=== PATIENT | female | born 1945 | race Caucasian/White ===

== ENCOUNTER 2022-05-10 13:26 | Emergency (ER) | payer MEDICARE, SELFPAY ==
--- NOTE | 2022-05-10 | ECG_ITS ---
Test Reason : n/v Blood Pressure : / mmHG Vent. Rate : 057 BPM Atrial Rate : 057 BPM P-R Int : 186 ms QRS Dur : 132 ms QT Int : 480 ms P-R-T Axes : 072 -23 047 degrees QTc Int : 467 ms Poor data quality, interpretation may be adversely affected Sinus bradycardia Right bundle branch block Abnormal ECG When compared with ECG of 18-JUL-2013 10:14, Right bundle branch block is now Present Referred By: Generic ED Physician Electronically Signed By:ASHLY AMBROSIO MD
--- NOTE | ~2022-05-10 | CT_ITS ---
EXAMINATION: CT ABDOMEN AND PELVIS WITHOUT CONTRAST CLINICAL INFORMATION: Abdominal pain. Nausea. Vomiting. COMPARISON: None TECHNIQUE: Multidetector volumetric imaging was performed from the superior aspect of the liver through the pubic symphysis. Sagittal and coronal reformatted images were obtained on the technologist's workstation. This CT examination was performed using dose optimization techniques as appropriate, variously including the following: *Automated exposure control *Adjustment of mA and/or kV according to patient size (this includes techniques or standardized protocols for targeted exams where dose is matched to indication/reason for exam; i.e. extremities or head) *Use of iterative reconstruction technique DLP: 983 mGy-cm FINDINGS: LUNG BASES: Status post median sternotomy. Linear scarring at lung bases. Heart size normal. Vascular calcification of coronary arteries. Calcifications of mitral valve annulus. No pericardial effusion. Small hiatal hernia. LIVER, GALLBLADDER, AND BILIARY TREE: The liver is normal in size, shape, and attenuation. No focal hepatic lesion or biliary ductal dilatation is present. Status post cholecystectomy. PANCREAS: Unremarkable. SPLEEN: Unremarkable. ADRENAL GLANDS: Unremarkable. KIDNEYS AND URETERS: The kidneys are normal in size, shape, and attenuation. No hydronephrosis, hydroureter, or calculi seen. No perinephric stranding. BLADDER: Unremarkable. GASTROINTESTINAL TRACT: There are numerous diverticula of the descending and sigmoid colon. Scattered diverticula of the right colon There is no diverticulitis. There is no bowel wall thickening /edema. There is no bowel obstruction. There is a moderate volume of stool in the colon. The appendix is normal . The small bowel loops are unremarkable. The stomach is normal. There is small hiatal hernia. ABDOMINAL WALL: No significant hernia is appreciated. LYMPH NODES: Normal. VASCULAR: Extensive vascular calcifications throughout the abdomen and pelvis. There is no aneurysm. PELVIC VISCERA: Uterus is anteverted. No adnexal abnormality. OSSEOUS STRUCTURES: No acute osseous abnormality. There is advanced multilevel degenerative spondylosis throughout the spine. Grade 1/2 anterolisthesis of L4 on L5 due to facet joint disease. No spondylolysis. Old healed fracture of the left posterior 11th rib. CT/CT abdomen pelvis wo con IMPRESSION: No acute abnormality the abdomen and pelvis. Marked diverticulosis of the colon but no evidence of diverticulitis. Status post cholecystectomy. Fleischner guidelines were followed.
--- NOTE | ~2022-05-10 | XR_ITS ---
EXAMINATION: XR CHEST CLINICAL INFORMATION: Shortness of breath COMPARISON: Previous chest x-ray June 2013 TECHNIQUE: Frontal view of the chest was obtained. FINDINGS: The cardiac silhouette does not appear enlarged. There are new median sternotomy wires and mediastinal clips. Hilar and mediastinal contours are otherwise unremarkable. The lungs are clear. There is no pleural effusion or pneumothorax. No acute bone abnormality appreciated. XR/XR chest 1V IMPRESSION: No evidence for acute disease in the chest.
--- NOTE | ~2022-05-10 | CT_ITS ---
EXAMINATION: CT HEAD WITHOUT CONTRAST CLINICAL INFORMATION: Altered mental status COMPARISON: None TECHNIQUE: Contiguous axial imaging was performed from the skull base to vertex without intravenous administration of contrast. This CT examination was performed using dose optimization techniques as appropriate, variously including the following: *Automated exposure control *Adjustment of mA and/or kV according to patient size (this includes techniques or standardized protocols for targeted exams where dose is matched to indication/reason for exam; i.e. extremities or head) *Use of iterative reconstruction technique DLP: 676 mGy-cm FINDINGS: There is no evidence of acute intracranial hemorrhage or territorial infarction. No abnormal mass effect or midline shift is seen. Hopson to white matter differentiation is well preserved. No extra-axial fluid collections are identified. There is generalized global volume loss. There is moderate prominence of the ventricles and the sulci . There is mild hypodensity of the periventricular white matter due to chronic small vessel ischemic disease. There are vascular calcifications of the internal carotid arteries bilaterally. The osseous structures and soft tissues are normal. The mastoid air cells and visualized portions of the paranasal sinuses are well aerated. CT/CT head/brain wo con IMPRESSION: No acute intracranial pathology.
--- NOTE | 2022-05-10 10:16 | ECG_ITS ---
Test Reason : chest pain Blood Pressure : / mmHG Vent. Rate : 070 BPM Atrial Rate : 070 BPM P-R Int : 186 ms QRS Dur : 134 ms QT Int : 456 ms P-R-T Axes : 073 -31 042 degrees QTc Int : 492 ms Normal sinus rhythm Left axis deviation Right bundle branch block Inferior infarct , age undetermined Abnormal ECG When compared with ECG of 10-MAY-2022 13:51, No significant changes seen Referred By: Leanne Steel Electronically Signed By:GARY GAMEZ
[2022-05-10 13:45] VITALS: BP 174/74; PULSE 62; O2SAT 97; BMI 40.8
[2022-05-10 13:47] VITALS: BP 142/78; PULSE 61; RESP 12; TEMP 36.6; O2SAT 100
[2022-05-10 14:24] LABS: MANUAL DIFF FLAG NO
[2022-05-10 14:26] LABS: Basophils Percent Auto 0.4 % (0-2); Eosinophils Percent Auto 0.4 % (0-4); Hematocrit 41.6 % (37.0-47.0); Hemoglobin 13.7 g/dl (12.0-16.0); Imm Gran Abs Auto 0.04 X10*3/uL (0.00-0.03); Imm Gran Pct Auto 0.4 % (0.0-0.4); Lymphocytes Absolute Auto 0.8 X10*3/uL (1.2-4.9); Lymphocytes Percent Auto 7.4 % (20-40); Mean Corpuscular HGB Conc 32.9 g/dl (31.0-35.0); Mean Corpuscular Hemoglobin 29.1 pg (27.0-33.0); Mean Corpuscular Volume 88.5 fL (80.0-98.0); Mean Platelet Volume 10.6 fL (9.4-12.3); Monocytes Absolute Auto 0.3 X10*3/uL (0.1-1.2); Monocytes Percent Auto 2.5 % (2-11); Neutrophils Absolute Auto 9.2 x10*3/uL (2.0-8.3); Neutrophils Percent Auto 88.9 % (45-73); Platelet Count 197 X10*3/uL (160-400); Red Cell Distribution Width 13.6 % (11.0-16.0); White Blood Count 10.4 X10*3/uL (4.8-10.8)
[2022-05-10 14:33] VITALS: BP 167/68; PULSE 61; RESP 14; O2SAT 100
--- NOTE | 2022-05-10 14:36 | ED_ITS ---
HPI - Nausea/Vomiting/Diarrhea General Chief complaint: Nausea/Vomiting/Diarrhea Stated complaint: DIZZINESS Time Seen by Provider: 05/10/22 14:31 History of Present Illness HPI Narrative: Patient is an 7-year-old female presents today with having not feeling well. Having nausea vomiting for last 2 days generalized malaise weakness. Question lowered to the floor. Denies any chest pain. Positive history of diabetes. History of MT in the past. Patient unable to ascertain will kind of vomiting she had it does feel generally weak. No bloody stool. No diarrhea. Patient has a home. No coughing or congestion. Immunized for COVID. Patient denies any focal weakness. Feels very weak. Daughter said patient had further evaluation. Related Data Home Medications Medication Instructions Recorded Confirmed allopurinol 100 mg tablet 1 tab PO DAILY 05/10/22 05/10/22 amlodipine 5 mg tablet 1 tab PO DAILY 05/10/22 05/10/22 aspirin 81 mg tablet,delayed 81 mg PO DAILY 05/10/22 05/10/22 release atorvastatin 80 mg tablet 1 tab PO DAILY 05/10/22 05/10/22 brinzolamide 1 %-brimonidine 0.2 % 1 drp ophthalmic (eye) BID 05/10/22 05/10/22 eye drops,suspension (Simbrinza) carvedilol 6.25 mg tablet 1 tab PO BID 05/10/22 05/10/22 dapagliflozin 10 mg tablet 1 tab PO DAILY 05/10/22 05/10/22 (Farxiga) donepezil 10 mg tablet 1 tab PO DAILY 05/10/22 05/10/22 dulaglutide 3 mg/0.5 mL 3 mg subcut MORALES 05/10/22 05/10/22 subcutaneous pen injector (Trulicity) furosemide 40 mg tablet 1 tab PO DAILY 05/10/22 05/10/22 insulin glargine 100 unit/mL (3 46 unit subcut DAILY 05/10/22 05/10/22 mL) subcutaneous pen (Lantus Solostar U-100 Insulin) memantine 14 mg capsule 1 cap PO DAILY 05/10/22 05/10/22 sprinkle,extended release 24hr netarsudil 0.02 %-latanoprost 1 drp ophthalmic (eye) BEDTIME 05/10/22 05/10/22 0.005 % eye drops ([facility]) valsartan 320 mg tablet 1 tab PO DAILY 05/10/22 05/10/22 Allergies Allergy/AdvReac Type Severity Reaction Status Date / Time No Known Allergies Allergy Unverified 05/04/21 13:53 [No Known Allergies*] Review of Systems Review of Systems: Positive generalized malaise. No coughing or congestion or pressure symptoms. No diaphoresis. Yes all other systems are reviewed and are negative [facility] Past Medical History Attestation statement: The following information was validated with the patient. Social History Social History Advance Directives: No Advance Directives Information Provided: Yes Physical Exam Vital Signs: Vital Signs: Last Vital Signs Temp 97.8 F 05/10/22 13:47 Pulse 61 05/10/22 14:33 Resp 14 05/10/22 14:33 BP 167/68 H 05/10/22 14:33 Pulse Ox 100 05/10/22 14:33 O2 Del Method 05/10/22 14:33 BMI result Body Mass Index 40.8 Appearance: Alert. Oriented X3. No acute distress. Eyes: Pupils equal, round and reactive to light. ENT: Pharynx normal. Neck: Normal inspection. Neck supple. No lymph nodes noted. No crepitus CVS: Normal heart rate and rhythm. Pulses normal. Normal S1 and S2 Respiratory: No respiratory distress. Breath sounds normal. No Wheezing. No rales Abdomen: Soft and nontender. No rigidity. No distention. good BS x4 Skin: Skin warm and dry. Normal skin color. Normal skin turgor. Extremities: No lower extremity edema. Neurovascular intact to all extremities. No Lacerations. No Rash Neuro: Oriented X 3. No motor deficit. No sensory deficit. Moving all extermities. No slurred speech MDM - Nausea/Vomiting/Diarrhea MDM Narrative Medical decision making narrative: Patient's daughter arrived. Been having nausea vomiting some generalized malaise. Patient lives with an elderly brother 5 years younger. Was found on the ground question syncope. Initial set of troponin was negative. EKG because of the earlier history of nausea vomiting. A CT scan of the abdomen was done was grossly negative. Patient's electrolytes consistent with having some dehydration with BUN at 34 creatinine 1. Likely contributed to patient's generalized malaise. Will give additional IV fluids. Patient's urine was sent off. CPK was 300. There is no evidence for rhabdo. She will most likely require admission further evaluation. She is in stable condition. Patient's EKG showed a sinus pattern there is a right bundle branch block there is T-wave inversion over the anterior septal leads this is old. There is no acute ST segment elevation noted. EKG is not changed from previous Patient's case discussed with family. Her case was discussed with daughter. Was found to have a possible syncope weakness generalized malaise nausea vomiting. CT scan of the head was also negative. There is no evidence of bleeding. Will give IV fluids. Patient's urine showed no evidence of infection. Patient will likely require admission. In stable condition. Lab Data Result diagrams: 05/10/22 14:16 05/10/22 14:16 Labs: Lab Results 05/10/22 05/10/22 05/10/22 Range/Units 14:16 14:16 14:16 WBC 10.4 (4.8-10.8) X10*3/uL RBC 4.70 (4.20-5.50) X10*6/uL Hgb 13.7 (12.0-16.0) g/dl Hct 41.6 (37.0-47.0) % MCV 88.5 (80.0-98.0) fL MCH 29.1 (27.0-33.0) pg MCHC 32.9 (31.0-35.0) g/dl RDW 13.6 (11.0-16.0) % Plt Count 197 (160-400) X10*3/uL MPV 10.6 (9.4-12.3) fL Immature Gran % (Auto) 0.4 (0.0-0.4) % Neut % (Auto) 88.9 H (45-73) % Lymph % (Auto) 7.4 L (20-40) % [place] % (Auto) 2.5 (2-11) % Eos % (Auto) 0.4 (0-4) % Baso % (Auto) 0.4 (0-2) % Lymph # (Auto) 0.8 L (1.2-4.9) X10*3/uL [place] # (Auto) 0.3 (0.1-1.2) X10*3/uL Eos # (Auto) 0.0 (0.0-0.4) X10*3/uL Baso # (Auto) 0.0 (0.0-0.2) X10*3/uL Abs Immat Gran (auto) 0.04 H (0.00-0.03) X10*3/uL Absolute Neuts (auto) 9.2 H (2.0-8.3) x10*3/uL Absolute Nucleated RBC 0.000 (0.0-0.012) X10*3/uL Nucleated RBC % (auto) 0.0 (0.0-0.2) /100WBC Sodium 142 (135-145) mmol/L Potassium 4.7 (3.3-5.1) mmol/L Chloride 104 (96-108) mmol/L Carbon Dioxide 30 H (22-29) mmol/L Anion Gap 13 (12-20) BUN 34 H (9-16) mg/dL Creatinine 1.07 (0.5-1.4) mg/dL Estim Creat Clear Calc 48.3 Estimated GFR 50 Random Glucose 176 H (60-115) mg/dL Calcium 9.6 (8.4-10.2) mg/dL Total Bilirubin 0.7 (0.0-1.0) mg/dL Direct Bilirubin 0.3 (0.0-0.5) mg/dL AST 24 (5-31) U/L ALT 34 H (0-31) U/L Alkaline Phosphatase 143 H (39-117) U/L Total Creatine Kinase (26-140) U/L Troponin I High Sens 10.4 (<3.5-17.0) ng/L Total Protein 7.2 (6.5-8.0) g/dL Albumin 4.1 (3.5-5.0) g/dL Urine Color Urine Appearance Urine pH (5.0-8.0) Ur Specific [place] (1.005-1.025) Urine Protein (NEG-TRACE) MG/DL Urine Glucose (UA) (NEG) MG/DL Urine Ketones (NEG) MG/DL Urine Blood (NEG) Urine Nitrite (NEG) Ur Leukocyte Esterase (NEG) Urine RBC (0) /HPF Urine WBC (0-4) /HPF Ur Squamous Epith Cells /LPF Urine Bacteria /LPF COVID-19 (BONNIE) (Negative) COVID-19 Clin Com 05/10/22 05/10/22 05/10/22 Range/Units 16:24 16:24 17:42 WBC (4.8-10.8) X10*3/uL RBC (4.20-5.50) X10*6/uL Hgb (12.0-16.0) g/dl Hct (37.0-47.0) % MCV (80.0-98.0) fL MCH (27.0-33.0) pg MCHC (31.0-35.0) g/dl RDW (11.0-16.0) % Plt Count (160-400) X10*3/uL MPV (9.4-12.3) fL Immature Gran % (Auto) (0.0-0.4) % Neut % (Auto) (45-73) % Lymph % (Auto) (20-40) % [place] % (Auto) (2-11) % Eos % (Auto) (0-4) % Baso % (Auto) (0-2) % Lymph # (Auto) (1.2-4.9) X10*3/uL [place] # (Auto) (0.1-1.2) X10*3/uL Eos # (Auto) (0.0-0.4) X10*3/uL Baso # (Auto) (0.0-0.2) X10*3/uL Abs Immat Gran (auto) (0.00-0.03) X10*3/uL Absolute Neuts (auto) (2.0-8.3) x10*3/uL Absolute Nucleated RBC (0.0-0.012) X10*3/uL Nucleated RBC % (auto) (0.0-0.2) /100WBC Sodium (135-145) mmol/L Potassium (3.3-5.1) mmol/L Chloride (96-108) mmol/L Carbon Dioxide (22-29) mmol/L Anion Gap (12-20) BUN (9-16) mg/dL Creatinine (0.5-1.4) mg/dL Estim Creat Clear Calc Estimated GFR Random Glucose (60-115) mg/dL Calcium (8.4-10.2) mg/dL Total Bilirubin (0.0-1.0) mg/dL Direct Bilirubin (0.0-0.5) mg/dL AST (5-31) U/L ALT (0-31) U/L Alkaline Phosphatase (39-117) U/L Total Creatine Kinase 367 H (26-140) U/L Troponin I High Sens (<3.5-17.0) ng/L Total Protein (6.5-8.0) g/dL Albumin (3.5-5.0) g/dL Urine Color YELLOW Urine Appearance CLOUDY Urine pH 7.0 (5.0-8.0) Ur Specific [place] 1.010 (1.005-1.025) Urine Protein TRACE (NEG-TRACE) MG/DL Urine Glucose (UA) >=1000 H (NEG) MG/DL Urine Ketones NEG (NEG) MG/DL Urine Blood 2+ H (NEG) Urine Nitrite NEG (NEG) Ur Leukocyte Esterase NEG (NEG) Urine RBC 10-14 H (0) /HPF Urine WBC 0-2 (0-4) /HPF Ur Squamous Epith Cells 3+ /LPF Urine Bacteria 3+ /LPF COVID-19 (BONNIE) Negative (Negative) COVID-19 Clin Com See Note Discharge Plan Discharge Clinical Impression: Dehydration, Syncope Patient Disposition: Admitted As Inpatient Prescriptions: No Action furosemide 40 mg tablet 1 tab PO DAILY atorvastatin 80 mg tablet 1 tab PO DAILY carvedilol 6.25 mg tablet 1 tab PO BID donepezil 10 mg tablet 1 tab PO DAILY amlodipine 5 mg tablet 1 tab PO DAILY allopurinol 100 mg tablet 1 tab PO DAILY aspirin 81 mg Tablet,Delayed Release (Dr/Ec) 81 mg PO DAILY valsartan 320 mg tablet 1 tab PO DAILY insulin glargine [Lantus Solostar U-100 Insulin] 100 unit/mL (3 mL) insulin pen 46 unit subcut DAILY memantine 14 mg capsule,sprinkle,ER 24hr 1 cap PO DAILY Simbrinza 1-0.2 % drops,suspension 1 drp ophthalmic (eye) BID Farxiga 10 mg tablet 1 tab PO DAILY Rocklatan 0.02-0.005 % drops 1 drp ophthalmic (eye) BEDTIME Trulicity 3 mg/0.5 mL pen injector 3 mg subcut MORALES
[2022-05-10 14:44] LABS: Alanine Aminotransferase 34 U/L (0-31); Albumin Level 4.1 g/dL (3.5-5.0); Alkaline Phosphatase 143 U/L (39-117); Anion Gap 13 (12-20); Aspartate Amino Transferase 24 U/L (5-31); Bilirubin Direct 0.3 mg/dL (0.0-0.5); Bilirubin Total 0.7 mg/dL (0.0-1.0); Blood Urea Nitrogen 34 mg/dL (9-16); Calcium 9.6 mg/dL (8.4-10.2); Carbon Dioxide 30 mmol/L (22-29); Chloride 104 mmol/L (96-108); Creatinine Clr Calc Pharmacy 48.3; Estimated Glomerular Filt Rate 50; Glucose Random 176 mg/dL (60-115); Potassium 4.7 mmol/L (3.3-5.1); Sodium 142 mmol/L (135-145); Total Protein 7.2 g/dL (6.5-8.0)
[2022-05-10 14:47] LABS: Troponin-I High Sensitivity 10.4 ng/L (<3.5-17.0)
[2022-05-10] MEDS: ondansetron HCL 4 MG/2 ML VIAL IVPUSH (15:31)
[2022-05-10] MEDS: 0.9 % Sodium Chloride 500 ML 999 ML IV (15:35)
[2022-05-10 16:50] LABS: COVID-19 Test Negative (Negative); IDNOW Serial# 16C4AD1C
[2022-05-10] MEDS: 0.9 % Sodium Chloride 1,000 ML 999 ML IV ×2 (17:27→22:23)
--- NOTE | 2022-05-10 17:29 | PHA.MEDREC ---
Pharmacy Consult ? Medication Reconciliation Pharmacy has completed the medication reconciliation. Spoke to pt's daughter. Lasix reduced from bid to daily
[2022-05-10 17:51] LABS: Appearance Urine CLOUDY; Color Urine YELLOW; Glucose Urine UA >=1000 MG/DL (NEG); Leukocyte Esterase Urine NEG (NEG); Nitrite Urine NEG (NEG); UACC Culture Trigger NO; Urine Blood 2+ (NEG); Urine Ketones NEG (NEG); Urine Protein TRACE MG/DL (NEG-TRACE)
[2022-05-10 17:59] LABS: WBC Urine 0-2 /HPF (0-4)
[2022-05-10 18:00] LABS: Bacteria Urine 3+ /LPF; Squamous Epithelial Cell Urine 3+ /LPF
[2022-05-10 20:11] VITALS: BP 179/59; PULSE 72; RESP 14; O2SAT 99
[2022-05-10 20:48] LABS: Anion Gap 10 (12-20); Blood Urea Nitrogen 27 mg/dL (9-16); Calcium 8.7 mg/dL (8.4-10.2); Carbon Dioxide 29 mmol/L (22-29); Chloride 107 mmol/L (96-108); Creatinine Clr Calc Pharmacy 52.1; Estimated Glomerular Filt Rate 54; Glucose Random 238 mg/dL (60-115); Potassium 4.3 mmol/L (3.3-5.1); Sodium 142 mmol/L (135-145)
[2022-05-10 20:50] LABS: Troponin-I High Sensitivity 14.6 ng/L (<3.5-17.0)
--- NOTE | 2022-05-10 21:15 | PC.NURSE ---
This RN ambulated pt down the rock with walker. Pt ambulated with steady gait and no complaints of dizziness or SOB.
[2022-05-10 22:35] VITALS: BP 159/50; PULSE 65; RESP 18; TEMP 36.7; O2SAT 98
--- NOTE | 2022-05-10 23:18 | PC.NURSE ---
family member called and will be calling the pt niece for a ride home.
[2022-05-10 23:50] VITALS: BP 173/62; PULSE 77; RESP 12; O2SAT 97
== END 2022-05-11 00:16 | disposition home or self-care (01) ==
PROVIDERS: Emergency Provider Emergency Medicine Emergency Medical Services; PCP Internal Medicine
DX: R55 Syncope and collapse (principal); E86.0 Dehydration; R11.2 Nausea with vomiting, unspecified; Z20.822 Contact with and (suspected) exposure to COVID-19; Z79.899 Other long term (current) drug therapy
CPT/HCPCS: 36415; 70450; 71045; 74176; 80048; 80053; 81001; 82248; 82550; 84484; 85025; 87635; 93005; 96361; 96374; 99284; 99285; J2405